=== PATIENT | female | born 1990 | race Caucasian/White ===

== ENCOUNTER 2022-04-22 14:12 | Emergency (ER) | payer BC ==
[~2022-04-22] VITALS: Ht 167.6 cm; Wt 90.7 kg
[2022-04-22 14:15] VITALS: BP_SYST 112
[2022-04-22] MEDS ORDERED: ASPIRIN 325 MG TABLET PO ONE (15:00)
[2022-04-22] MEDS ORDERED: NACL 0.9% 1,000 ML IV ONE (15:00)
[2022-04-22] MEDS ORDERED: KETOROLAC TROMETHAMINE 30 MG VIAL IVP ONE (15:15)
[2022-04-22 15:33] LABS: ACETONE, SERUM NEGATIVE (NEGATIVE)
[2022-04-22 15:39] LABS: BASOPHILS % (AUTO) 0.4 % (0.0-2.0); EOSINOPHILS # (AUTO) 0.1 K/uL (0.0-0.4); HEMATOCRIT 43.3 % (36-48); HEMOGLOBIN 14.3 g/dL (12.0-16.0); LYMPHOCYTES # (AUTO) 3.2 K/uL (1.0-5.5); LYMPHOCYTES % (AUTO) 26.5 % (20.5-51.5); MEAN CORPUSCULAR HEMOGLOBIN 27 pg (27-31); MEAN CORPUSCULAR HGB CONC 33 % (32-36); MEAN CORPUSCULAR VOLUME 81 fL (79.0-98.0); MONOCYTES # (AUTO) 0.7 K/uL (0.0-1.0); MONOCYTES % (AUTO) 5.7 % (1.7-9.3); NEUTROPHILS # (AUTO) 8.1 K/uL (1.8-7.7); NEUTROPHILS % (AUTO) 66.4 % (40.0-70.0); PLATELET COUNT (AUTO) 226 K/uL (130-430); RED BLOOD CELL COUNT(AUTO) 5.38 MIL/uL (4.2-6.2); RED CELL DISTRIBUTION WIDTH 13.6 % (9.0-15.0); WHITE BLOOD COUNT (AUTO) 12.1 K/uL (4.8-10.8)
[2022-04-22 16:17] LABS: ANION GAP 8 (5-15); CALCIUM 9.4 mg/dL (8.4-11.0); CHLORIDE 99 mmol/L (98-107); CREATININE 0.61 mg/dL (0.55-1.30); GLUCOSE 171 mg/dL (70-99); UREA NITROGEN, BLOOD 11 mg/dL (8-21)
[2022-04-22 16:23] LABS: ALANINE AMINOTRANSFERASE 30 U/L (12-78); ALBUMIN 3.7 g/dL (3.4-4.8); ASPARTATE AMINOTRANSFERASE 16 U/L (10-37); PHOSPHORUS 3.5 mg/dL (2.7-4.5); TOTAL BILIRUBIN 0.5 mg/dL (0.0-1.0)
[2022-04-22] MEDS ORDERED: ACET325T53 PO (17:17)
[2022-04-22] MEDS ORDERED: METH-634 PO (17:17)
[2022-04-22] MEDS ORDERED: IBUP-1969 PO (17:17)
[2022-04-22] MEDS ORDERED: OXYC-128 PO (17:18)
[2022-04-22] MEDS ORDERED: LIDOINT TP (17:18)
[2022-04-22 17:37] VITALS: BP_SYST 124
== END 2022-04-22 17:37 | disposition home or self-care (01) ==
LOC: SED 14:12
DX: M54.12 Radiculopathy, cervical region (principal); R07.9 Chest pain, unspecified; R11.0 Nausea; J45.909 Unspecified asthma, uncomplicated; I10 Essential (primary) hypertension; F17.200 Nicotine dependence, unspecified, uncomplicated; F12.90 Cannabis use, unspecified, uncomplicated; Z79.899 Other long term (current) drug therapy
CPT/HCPCS: 99285; 96374; 71045; 96361; 80053; 82009; 82550; 83880; 83735; 84100; 85025; 85379; 84484; 36415; 93005; 83605; J1885; J7030

== ENCOUNTER 2022-07-01 05:08 | Emergency (ER) | payer BC ==
[~2022-07-01] VITALS: Ht 165.1 cm; Wt 92.1 kg
[~2022-07-01 05:08] MED LIST: ACET325T53 PO; IBUP-1969 PO; LIDOINT TP; METH-634 PO; OXYC-128 PO
[2022-07-01 05:13] VITALS: BP_SYST 127
--- NOTE | 2022-07-01 05:13 | NUR ---
Patient triaged and placed in ED bed 8. VSS and patient appears in no acute distress at this time. Accompanied by family member. MD notified of need for MSE.
--- NOTE | 2022-07-01 05:42 | NUR ---
Report given to MIGUELINA Brownlee; assuming patient cares at this time.
--- NOTE | 2022-07-01 06:22 | NUR ---
Dr. Manzo at bedside examining the patient.
--- NOTE | 2022-07-01 06:45 | NUR ---
Patient eloped, respirations even and unlabored, ambulated with a steady gait out to the ER entrance. Dr. Manzo made aware.
== END 2022-07-01 06:45 | disposition left against medical advice (07) ==
LOC: SED 05:08
DX: M54.6 Pain in thoracic spine (principal); J45.909 Unspecified asthma, uncomplicated; E11.9 Type 2 diabetes mellitus without complications; Z79.899 Other long term (current) drug therapy
CPT/HCPCS: 99281